=== PATIENT | male | born 1965 | race Caucasian/White ===

== ENCOUNTER 2017-07-26 12:28 | Emergency (ER) | payer OTHER ==
[~2017-07-26] VITALS: Ht 177.8 cm; Wt 122.5 kg
[2017-07-26] MEDS ORDERED: LISINOPRIL20 MG PO (12:45)
[2017-07-26 13:22] LABS: ABSOLUTE BASOPHILS 0.1 thou/uL (0.0-0.2); ABSOLUTE LYMPHOCYTES 1.2 thou/uL (0.8-5.3); ABSOLUTE MONOCYTES 0.4 thou/uL (0.0-1.2); ABSOLUTE NEUTROPHILS 7.6 thou/uL (1.6-8.1); BASOPHILS 0.6 %; EOSINOPHILS 0.5 %; HEMATOCRIT 45.4 % (42.0-52.0); HEMOGLOBIN 15.5 gm/dL (14.0-18.0); LYMPHOCYTES 12.8 %; MCH 30.8 pg (26.0-34.0); MCHC 34.1 g/dL (28.0-37.0); MCV 90.4 fL (80.0-100.0); MONOCYTES 4.8 %; MPV 9.6 fl. (7.2-11.1); NUCLEATED RBCS 0 /100WBC; PLATELET COUNT* 194 thou/uL (150-400); POLYS 81.3 %; RBC 5.02 mil/uL (4.50-6.00); RDW-CV 13.5 % (10.5-14.5); WBC 9.4 thou/uL (4.0-11.0)
[2017-07-26 13:30] LABS: ANION GAP 12 mmol/L (7-16); BUN 15 mg/dL (7-18); CHLORIDE 105 mmol/L (98-107); CO2 24 mmol/L (21-32); CREATININE 0.9 mg/dL (0.6-1.3); GLUCOSE 123 mg/dL (70-99); POTASSIUM 4.1 mmol/L (3.5-5.1); SODIUM 141 mmol/L (136-145)
[2017-07-26 13:40] LABS: ALBUMIN 4.2 g/dL (3.4-5.0); ALKALINE PHOSPHATASE 63 U/L (46-116); SGOT 46 U/L (15-37); SGPT 85 U/L (30-65); TOTAL BILIRUBIN 0.5 mg/dL (<0.1-1.0); TOTAL PROTEIN 8.4 g/dL (6.4-8.2); TROPONIN-I LEVEL <0.06 ng/mL (<0.06)
[2017-07-26] MEDS ORDERED: PERCOCET 5-3251 EACH PO (14:54)
[2017-07-26] MEDS ORDERED: ROBAXIN 750 MG750 M1 PO (14:54)
[2017-07-26] MEDS ORDERED: MOBIC15 MG PO (14:54)
[2017-07-26 15:08] VITALS: BP 139/98
--- NOTE | 2017-07-27 12:33 | EKG ---
[place] [address] ELECTROCARDIOGRAM REPORT Name: EBENOJSE RAFAELValarieIRENE DENA Room: [facility]#: [id number] Admission: 07/26/17 Attend Phys: Discharge: 07/26/17 Date of : 67 Report #: [id number] THIS REPORT FOR: //name// 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
== END 2017-07-26 15:09 | disposition home or self-care (01) ==
LOC: EDBD 12:28 → M.ERS 12:28
PROVIDERS: Nurse Practitioner Family
DX: M54.2 Cervicalgia (principal); M54.9 Dorsalgia, unspecified; I10 Essential (primary) hypertension

== ENCOUNTER 2020-03-24 15:10 | Emergency (ER) | payer OTHER ==
[~2020-03-24] VITALS: Ht 177.8 cm; Wt 117.9 kg
[~2020-03-24 15:10] MED LIST: LISINOPRIL20 MG PO; MOBIC15 MG PO; PERCOCET 5-3251 EACH PO; ROBAXIN 750 MG750 M1 PO
[2020-03-24] MEDS ORDERED: BRILINTA90 MG PO (15:31)
[2020-03-24] MEDS ORDERED: ASA81BEC PO (15:32)
[2020-03-24] MEDS ORDERED: KAPSPARGO SPRIN25 MG PO (15:32)
[2020-03-24] MEDS ORDERED: SPIRONOLACTONE25 MG PO (15:33)
[2020-03-24] MEDS ORDERED: ATORVASTATIN CA80 MG PO (15:34)
[2020-03-24] MEDS ORDERED: TRAMADOL 50 MG50 MG PO (15:34)
[2020-03-24 16:15] LABS: ABSOLUTE BASOPHILS 0.1 thou/uL (0.0-0.2); ABSOLUTE EOSINOPHILS 0.1 thou/uL (0.0-0.7); ABSOLUTE LYMPHOCYTES 1.7 thou/uL (0.8-5.3); ABSOLUTE MONOCYTES 0.6 thou/uL (0.0-1.2); ABSOLUTE NEUTROPHILS 5.3 thou/uL (1.6-8.1); BASOPHILS 1.3 %; EOSINOPHILS 1.3 %; HEMATOCRIT 42.5 % (42.0-52.0); HEMOGLOBIN 14.3 gm/dL (14.0-18.0); LYMPHOCYTES 21.5 %; MCH 29.8 pg (26.0-34.0); MCHC 33.7 g/dL (28.0-37.0); MCV 88.6 fL (80.0-100.0); MONOCYTES 8.2 %; MPV 10.1 fl. (7.2-11.1); NUCLEATED RBCS 0 /100WBC; PLATELET COUNT* 172 thou/uL (150-400); POLYS 67.7 %; RDW-CV 13.9 % (10.5-14.5); WBC 7.8 thou/uL (4.0-11.0)
[2020-03-24 16:18] LABS: CALCIUM 8.5 mg/dL (8.5-10.1); CREATININE 1.1 mg/dL (0.6-1.3); POTASSIUM 4.1 mmol/L (3.5-5.1)
[2020-03-24 16:23] LABS: ALBUMIN 3.8 g/dL (3.4-5.0); TOTAL BILIRUBIN 0.6 mg/dL (<0.1-1.0); TOTAL PROTEIN 7.7 g/dL (6.4-8.2)
[2020-03-24] MEDS ORDERED: MECLIZINE HCL25 M1 PO (17:34)
[2020-03-24 17:35] VITALS: BP 106/60
--- NOTE | 2020-03-27 17:48 | EKG ---
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1965 Requested By: Asif Agudelo Order Number: [id number] MD: Celestino Trivedi Measurements Intervals [place] Rate: 81 P: 61 UT: 180 QRS: 75 QRSD: 103 T: 89 QT: 381 QTc: 443 Interpretive Statements Sinus rhythm Multiform ventricular premature complexes Biatrial enlargement Low voltage with right axis deviation Possible anteroseptal infarct, old Nonspecific T abnormalities, lateral leads Compared to ECG 07/26/2017 13:17:04 Ventricular premature complex(es) now present Atrial abnormality now present Right-axis deviation now present Low QRS voltage now present Myocardial infarct finding now present Electronically Signed On 03-27-2020 17:48:01 CDT by Celestino Trivedi [email or web address] <ELECTRONICALLY SIGNED> By: Celestino Trivedi MD, FACC 03/27/20 1748 153 153 Celestino Trivedi MD, FACC /EPI
== END 2020-03-24 17:35 | disposition home or self-care (01) ==
LOC: M.ERS 15:10
PROVIDERS: Emergency Medicine Emergency Medical Services
DX: R42 Dizziness and giddiness (principal); M54.6 Pain in thoracic spine; I10 Essential (primary) hypertension; I25.2 Old myocardial infarction; Z79.899 Other long term (current) drug therapy; Z79.82 Long term (current) use of aspirin